=== PATIENT | male | born 1955 | race Caucasian/White ===

== ENCOUNTER 2017-03-17 13:33 | Outpatient (CLI) | payer MEDICARE | END 2017-03-17 13:34 | disposition home or self-care (01) | LOC: SC 13:33 | PROVIDERS: ATTEND Internal Medicine Pulmonary Disease | DX: G47.33 Obstructive sleep apnea (adult) (pediatric) (principal); F03.90 Unspecified dementia, unspecified severity, without behavioral disturbance, psychotic disturbance, mood disturbance, and anxiety; G43.009 Migraine without aura, not intractable, without status migrainosus; T88.7XXA Unspecified adverse effect of drug or medicament, initial encounter | CPT/HCPCS: 36415; 80053; 85025; 99203; G0463; 99212 ==

== ENCOUNTER 2017-03-17 14:29 | Outpatient (CLI) | payer MEDICARE ==
[2017-03-17 19:19] LABS: BASOPHILS % (AUTO) 0.7 %; EOSINOPHILS # (AUTO) 0.1 10^3/uL (0.0-0.7); EOSINOPHILS % (AUTO) 2.2 %; HCT - HEMATOCRIT 42.9 % (42.0-52.0); HGB - HEMOGLOBIN 14.1 g/dL (14.0-18.0); LYMPHOCYTES # (AUTO) 1.8 10^3/uL (1.5-3.5); LYMPHOCYTES % (AUTO) 28.9 %; MEAN CORPUSCULAR HEMOGLOBIN 29.8 pg (27.0-31.0); MEAN CORPUSCULAR HGB CONC 32.8 g/dL (32.0-36.0); MEAN CORPUSCULAR VOLUME 90.9 fL (80.0-94.0); MEAN PLATELET VOLUME 8.6 fL (7.4-11.4); MONOCYTES # (AUTO) 0.6 10^3/uL (0.0-1.0); MONOCYTES % (AUTO) 10.1 %; NEUTROPHILS # (AUTO) 3.7 10^3/uL (1.5-6.6); NEUTROPHILS % (AUTO) 58.1 %; RED BLOOD COUNT 4.72 10^6/uL (4.70-6.10); RED CELL DISTRIBUTION WIDTH 14.6 % (12.0-15.0); UNCORRECTED WHITE BLOOD COUNT 6.3 x10^3/uL; WHITE BLOOD COUNT 6.3 x10^3/uL (4.8-10.8)
[2017-03-17 19:31] LABS: ALBUMIN/GLOBULIN RATIO 1.2 (1.0-2.2); BILIRUBIN,TOTAL 0.3 mg/dL (0.2-1.0); CALCIUM 9.1 mg/dL (8.5-10.3); CREATININE 1.2 mg/dL (0.6-1.2); POTASSIUM 4.6 mmol/L (3.5-5.0); TOTAL PROTEIN 7.3 g/dL (6.7-8.2)
== END 2017-03-17 14:30 | disposition home or self-care (01) ==
LOC: LAB.N 14:29
PROVIDERS: ATTEND Psychiatry & Neurology Neurology
DX: F03.90 Unspecified dementia, unspecified severity, without behavioral disturbance, psychotic disturbance, mood disturbance, and anxiety (principal); G43.009 Migraine without aura, not intractable, without status migrainosus; G47.33 Obstructive sleep apnea (adult) (pediatric); T88.7XXA Unspecified adverse effect of drug or medicament, initial encounter
CPT/HCPCS: 36415; 80053; 85025

== ENCOUNTER 2017-05-13 19:23 | Outpatient (CLI) | payer MEDICARE | END 2017-05-13 19:24 | disposition home or self-care (01) | LOC: SC 19:23 | PROVIDERS: ATTEND Internal Medicine Pulmonary Disease | DX: G47.33 Obstructive sleep apnea (adult) (pediatric) (principal); G47.61 Periodic limb movement disorder | CPT/HCPCS: 95810 ==

== ENCOUNTER 2017-06-30 13:51 | Outpatient (CLI) | payer MEDICARE | END 2017-06-30 13:52 | disposition home or self-care (01) | LOC: SC 13:51 | PROVIDERS: ATTEND Nurse Practitioner Family | DX: G47.33 Obstructive sleep apnea (adult) (pediatric) (principal) | CPT/HCPCS: 99214; G0463; 99212 ==

== ENCOUNTER 2017-08-04 15:03 | Outpatient (CLI) | payer MEDICARE | END 2017-08-04 15:04 | disposition home or self-care (01) | LOC: SC 15:03 | PROVIDERS: ATTEND Nurse Practitioner Family | DX: G47.33 Obstructive sleep apnea (adult) (pediatric) (principal) | CPT/HCPCS: 99214; G0463; 99212 ==

== ENCOUNTER 2018-03-24 15:48 | Outpatient (CLI) | payer MEDICARE | END 2018-03-24 15:49 | disposition home or self-care (01) | LOC: SC 15:48 | PROVIDERS: ATTEND Nurse Practitioner Family | DX: G47.33 Obstructive sleep apnea (adult) (pediatric) (principal) | CPT/HCPCS: 99213; G0463; 99212 ==

== ENCOUNTER 2020-12-18 17:39 | Outpatient (CLI) | payer MEDICARE ==
--- NOTE | 2020-12-19 10:54 | XRAY Report ---
PROCEDURE: Lumbar Spine 2 View INDICATIONS: SCIATICA, R SIDE TECHNIQUE: 3 views of the lumbar spine were acquired. COMPARISON: None. FINDINGS: Bones: 5 [id number] vertebrae are present. There is there is trace retrolisthesis of L2 on L3, L5 on S1. Severe disc and foraminal narrowing are noted L5-S1. Minimal scattered osteophytes are pre sent most notable at L5. No vertebral body compression fractures. No suspicious bony lesions. Soft tissues: Overlying bowel gas pattern is normal. No suspicious soft tissue calcifications. IMPRESSION: 1. Degenerative changes most notable at L5-S1. If there is concern for additional evaluation of nerve impingement/compression at L5-S1, MRI lumbar spine without contrast is recommended. Reviewed by: Lizzette Genao MD on 12/19/2020 10:53 AM PDT Approved by: Lizeztte Genao MD on 12/19/2020 10:53 AM PDT Station ID: [id number]
== END 2020-12-18 17:40 | disposition home or self-care (01) ==
LOC: DI.N 17:39
PROVIDERS: ATTEND Family Medicine
DX: M47.27 Other spondylosis with radiculopathy, lumbosacral region (principal); M54.31 Sciatica, right side

== ENCOUNTER 2022-02-08 16:08 | Emergency (ER) | payer MEDICARE ==
[2022-02-08 16:20] VITALS: BP 169/96
--- OUTSIDE RECORDS SUMMARY | 2022-02-08 16:31 | EXTERNAL MEDICAL SUMMARY RPT | Continuity of Care Document ---
:1955 Author Organization [facility] Address [address] [place] [address] Phone Care Team Providers Name Role Phone Unavailable Unavailable Unavailable Jax Rec[employer] Of [employer] Enp Unavailable Unavailable Allergies No information. Encounters No information. Functional Status No information. Immunizations No information. Medications date description facility +0000 levothyroxine All [id number]+0000 levothyroxine All [id number]+0000 fluvoxamine All [id number]+0000 levothyroxine All [id number]+0000 donepezil All [id number]+0000 memantine All [id number]+0000 fluvoxamine All [id number]+0000 fluvoxamine All 38332150954290+0000 donepezil All [id number]+0000 memantine All [id number]+0000 donepezil All [id number]+0000 memantine All 45064699178630+0000 fluvoxamine All 44109961087251+0000 levothyroxine All 12906682845470+0000 memantine All 10656315549918+0000 donepezil All Problems No information. Procedures date description facility +0000 Visit Code Hold All Results/Labs No information. Social History date description facility +0000 Unknown if ever smoked All Vital Signs date measurement value units [id number]+0000 BP_diastolic BP_diastolic 112 mmHg [id number]+0000 BP_systolic BP_systolic 168 mmHg 11523573593945+0000 heart_rate heart_rate 72 /min 06039943865792+0000 respiration_rate respiration_rate 19 /min [id number]+0000 temperature_metric temperature_metric 36.17 C [id number]+0000 temperature_standard temperature_standard 9 7.1 F [id number]+0000 weight_metric weight_metric 69.49 kg [id number]+0000 weight_standard weight_standard 153.2 lb
[2022-02-08] MEDS ORDERED: DORZOLAMIDE/TIMOLOL OPHTH DROPS RIGHTEYE STA (16:34)
[2022-02-08] MEDS ORDERED: acetaZOLAMIDE 250 MG TABLET PO STA (16:38)
--- NOTE | 2022-02-08 16:38 | ED Physician Documentation ---
History of Present Illness - Stated complaint Stated Complaint: R EYE IRRITATION - Chief complaint Chief Complaint: General - History obtained from History obtained from: Patient, Family - Additonal information Additional information: 66-year-old gentleman with history of dementia presents referred from walk-in clinic for right eye pain. Starting last night he felt like something was in his eye and then he developed a headache and nausea today. He went to the walk- in clinic and they thought he was pale and not acting right so was sent here. Per the he is acting at his baseline but did agree that he was feeling pale. He has a headache and feels nauseous. He wears glasses usually, but they do not have them with him. He feels like his vision is affected by this but is unable to quantify by how much. Review of Systems Unable to obtain: Dementia PD PAST MEDICAL HISTORY - Past Medical History Endocrine/Autoimmune: HyPOthyroidism GI: GERD Psych: Depression - Past Surgical History Past Surgical History: Yes Neuro: Craniotomy - Present Medications Home Medications: Ambulatory Orders Medication Instructions Recorded Confirmed Fluvoxamine Maleate 100 mg PO TID 08/30/13 08/30/13 Levothyroxine [Synthroid] 50 mcg PO QDAC 08/30/13 08/30/13 Naproxen [Naprosyn] 250 mg PO BID 08/30/13 08/30/13 Omeprazole 20 mg PO 08/30/13 08/30/13 Sucralfate [Carafate] 1 gm PO ACHS #60 tablet 08/31/13 - Allergies Allergies/Adverse Reactions: Allergies Allergy/AdvReac Type Severity Reaction Status Date / Time fluoxetine HCl * AdvReac agitated Verified 02/08/22 16:20 [From [facility] [employer]] - Social History Does the pt smoke?: No Smoking Status: Never smoker Does the pt drink ETOH?: No Does the pt have substance abuse?: Yes - Immunizations Immunizations are current?: Yes PD ED PE NORMAL - Vitals Vital signs reviewed: Yes - General General: No acute distress, Well developed/nourished - HEENT HEENT: Other (The right eye has an injected conjunctiva, a midpoint nonreactive pupil with cloudy anterior chamber. Irineo-Pen giving me error messages twice but then measuring 30 twice. Right eye has a small pupil with Irineo-Pen pressure of 16. Visual acuity 20/70 OS, cannot read top line OD, this is uncorrected.) - Neck Neck: Supple, no meningeal sign, No bony TTP - Cardiac Cardiac: RRR, No murmur - Respiratory Respiratory: No respiratory distress, Clear bilaterally - Abdomen Abdomen: Normal bowel sounds, Soft, Non tender - Back Back: No CVA TTP, No spinal TTP - Derm Derm: Normal color, Warm and dry - Extremities Extremities: No edema, No calf tenderness / cord - Neuro Neuro: No motor deficit, No sensory deficit, Normal speech, Other (Some memory difficulties, leans on his for the history.) - Psych Psych: Normal mood, Normal affect Results - Vitals Vitals: Vital Signs - 24 hr 02/08/22 16:16 Temperature 36.1 C L Heart Rate 59 L Respiratory 16 Rate Blood Pressure 169/96 H O2 Saturation 100 Oxygen O2 Source Room air - Labs Labs: Laboratory Tests 02/08/22 02/08/22 16:45 16:45 WBC 10.0 RBC 4.63 L Hgb 13.5 L Hct 40.9 L MCV 88.3 MCH 29.2 MCHC 33.0 RDW 15.3 H Plt Count 373 MPV 9.2 Neut # (Auto) 8.0 H Lymph # (Auto) 1.4 L [place] # (Auto) 0.5 Eos # (Auto) 0.0 Baso # (Auto) 0.1 Absolute Nucleated RBC 0.00 Nucleated RBC % 0.0 Sodium 139 Potassium 4.0 Chloride 102 Carbon Dioxide 26 Anion Gap 11.0 BUN 10 Creatinine 1.0 Estimated GFR (MDRD) 75 L Glucose 139 H Calcium 9.8 PD MEDICAL DECISION MAKING - ED course ED course: 66-year-old gentleman presents with what looks like an acute angle-closure glaucoma. Irineo-Pen was only 30 here but otherwise his exam was typical. I contacted Jaret Saul, local process development engineer who agreed with us giving him a dose of p.o. Diamox and a topical dose of Cosopt here and he wanted to see the patient urgently in his clinic. I received word later that his actual intraocular pressure was 78 with corneal edema and a laser treatment was done. Departure - Departure Disposition: 01 Home, Self Care Clinical Impression: Glaucoma (increased eye pressure) Condition: Good Record reviewed to determine appropriate education?: Yes Comments: Go directly the office of Jaret Saul process development engineer in [place]. His office is located at [address] in [place]. It is on [address] [place]. He is in [place]. Discharge Date/Time: 02/08/22 16:58
[2022-02-08 16:51] LABS: BASOPHILS # (AUTO) 0.1 10^3/uL (0.0-0.1); BASOPHILS % (AUTO) 0.5 %; EOSINOPHILS % (AUTO) 0.2 %; HCT - HEMATOCRIT 40.9 % (42.0-52.0); HGB - HEMOGLOBIN 13.5 g/dL (14.0-18.0); LYMPHOCYTES # (AUTO) 1.4 10^3/uL (1.5-3.5); LYMPHOCYTES % (AUTO) 13.8 %; MEAN CORPUSCULAR HEMOGLOBIN 29.2 pg (27.0-31.0); MEAN CORPUSCULAR VOLUME 88.3 fL (80.0-94.0); MEAN PLATELET VOLUME 9.2 fL (7.4-11.4); MONOCYTES # (AUTO) 0.5 10^3/uL (0.0-1.0); MONOCYTES % (AUTO) 5.2 %; NEUTROPHILS % (AUTO) 79.9 %; PLT - PLATELET COUNT 373 10^3/uL (130-450); RED BLOOD COUNT 4.63 10^6/uL (4.70-6.10); RED CELL DISTRIBUTION WIDTH 15.3 % (12.0-15.0)
[2022-02-08 17:08] LABS: CALCIUM 9.8 mg/dL (8.5-10.3)
== END 2022-02-08 16:58 | disposition home or self-care (01) ==
LOC: ED 16:08
DX: H40.9 Unspecified glaucoma (principal)
CPT/HCPCS: 36415; 80048; 85025; 99283; A9270

== ENCOUNTER 2022-02-20 16:43 | Outpatient (CLI) | payer MEDICARE | END 2022-02-20 16:44 | disposition home or self-care (01) | LOC: LAB.N 16:43 | PROVIDERS: ATTEND Ophthalmology | DX: Z01.812 Encounter for preprocedural laboratory examination (principal); H25.9 Unspecified age-related cataract; Z20.822 Contact with and (suspected) exposure to COVID-19 ==

== ENCOUNTER 2022-02-21 08:51 | Day surgery (SDC) | payer MEDICARE ==
[~2022-02-21 08:51] MED LIST: ACETYLCHOLINE 20 MG/2 ML KIT IO ONE; BRIMONIDINE 0.2% OPHTH DROPS 5 ML ONE; BSS/LIDOCAINE/EPINEPHRINE 1 ML VIAL ONE; CYCLOPENTOLATE 1% OPHTH DROPS 2 ML ONE; EPINEPHrine 1 MG/ML AMP ONE; KETOROLAC 0.45% OPHTH DROPS ONE; PHENYLEPHRINE 2.5% OPHTH 2 ML DROPS ONE; PROPARACAINE 0.5% OPHTH DROPS 15 ML ONE; TRIAMCIN/MOXIFLOX OPHTHALMIC 0.6 ML VIAL IO ONE; TRYPAN BLUE 0.5 ML SYRINGE IO ONE; VANCOMYCIN OPHTH (TOPICAL) 10 MG/ML SYRINGE ONE
[2022-02-21] MEDS ORDERED: LACTATED RINGERS 1,000 ML IV ONE ×2 (09:46→12:08)
--- NOTE | 2022-02-21 10:10 | ANESTHESIA ---
Pre-Anesthesia VS, & Labs - Diagnosis R cataract - Procedure R PhacoIOL Vital Signs: Temp Pulse Resp BP Pulse Ox O2 Flow Rate 36.3 C L 52 L 15 148/90 H 100 0 02/21/22 09:47 02/21/22 09:47 02/21/22 09:47 02/21/22 09:47 02/21/22 09:47 02/21/22 09:47 Height: 5 ft 9 in Weight (kg): 68.6 kg Body Mass Index: 22.3 BMI Classification: Normal - NPO >8 hours Home Medications and Allergies Home Medications: Ambulatory Orders Aspirin [Aspirin EC] 81 mg PO DAILY 02/20/22 Divalproex [Kathia Lau] 250 mg PO BID 02/20/22 Donepezil HCl [Aricept] 20 mg PO QPM 02/20/22 Magnesium Oxide [Magnesium] 500 mg PO DAILY 02/20/22 Memantine [Namenda] 5 mg PO DAILY 02/20/22 Timolol [Betimol] 1 ml OP DAILY 02/20/22 acetaZOLAMIDE [Diamox] 250 mg PO QID 02/20/22 Fluvoxamine Maleate 100 mg PO TID 08/30/13 Levothyroxine [Synthroid] 75 mcg PO QDAC 08/30/13 Naproxen [Naprosyn] 250 mg PO BID 08/30/13 Omeprazole 20 mg PO DAILY 08/30/13 Aspirin [Aspirin EC] 81 mg PO DAILY 02/20/22 Divalproex [Kathia Lau] 250 mg PO BID 02/20/22 Donepezil HCl [Aricept] 20 mg PO QPM 02/20/22 Magnesium Oxide [Magnesium] 500 mg PO DAILY 02/20/22 Memantine [Namenda] 5 mg PO DAILY 02/20/22 Timolol [Betimol] 1 ml OP DAILY 02/20/22 acetaZOLAMIDE [Diamox] 250 mg PO QID 02/20/22 Allergies/Adverse Reactions: Allergies Allergy/AdvReac Type Severity Reaction Status Date / Time fluoxetine HCl * AdvReac agitated Verified 02/21/22 09:51 [From Prozac] Anes History & Medical History - Anesthetic History Anesthesia Complications: reports: No previous complications Family history of Anesthesia Complications: Denies Family history of Malignant Hyperthermia: Denies - Medical History Cardiovascular: reports: Hypertension, High cholesterol Pulmonary: reports: Sleep apnea Gastrointestinal: reports: GERD Urinary: reports: None Neuro: reports: Dementia Musculoskeletal: reports: Osteoarthritis Endocrine/Autoimmune: reports: HyPOthyroidism Skin: reports: None Smoking Status: Never smoker - Surgical History Neurologic: reports: Craniotomy Orthopedic: reports: Spine surgery Exam General: Alert, Cooperative Dental: Poor dentition, Other (may missing teeth, very poor dentition, pt denies any are loose) Mouth Openin Fingerbreadth Neck Mobility: Normal Mallampati classification: II Thyromental Distance: 4-6 cm Respiratory: Lungs clear Plan Anesthesia Type: General Consent for Procedure(s) Verified and Reviewed: Yes Code Status: Attempt Resuscitation ASA classification: 3-Severe systemic disease Is this case an emergency?: No
[2022-02-21] MEDS ORDERED: MORPHINE 2 MG/ML CARPUJECT IVP PRN (10:11)
[2022-02-21] MEDS ORDERED: ePHEDrine 50 MG/ML VIAL IVP PRN (10:11)
[2022-02-21] MEDS ORDERED: fentaNYL 100 MCG/2 ML VIAL IVP PRN (10:11)
[2022-02-21] MEDS ORDERED: NALOXONE 0.4 MG/ML VIAL IVP PRN (10:11)
[2022-02-21] MEDS ORDERED: ATROPINE ABBOJECT 1 MG/10 ML SYRINGE IVP PRN (10:11)
[2022-02-21] MEDS ORDERED: ONDANSETRON 4 MG/2 ML VIAL IVP PRN (10:11)
[2022-02-21] MEDS ORDERED: HYDROmorphone 0.5 MG/0.5 ML SYRINGE IVP PRN (10:11)
[2022-02-21] MEDS ORDERED: LACTATED RINGERS 1,000 ML IV SCH (11:00)
[2022-02-21] MEDS ORDERED: BRIMONIDINE 0.2% OPHTH DROPS 5 ML OPTH ONE (11:39)
[2022-02-21] MEDS ORDERED: TIMOLOL 0.5% OPHTH DROPS OPTH ONE (11:40)
[2022-02-21] MEDS ORDERED: EPINEPHrine 1 MG/ML AMP IR ONE (11:40)
[2022-02-21] MEDS ORDERED: VANCOMYCIN OPHTH (TOPICAL) 10 MG/ML SYRINGE TOP ONE (11:41)
[2022-02-21] MEDS ORDERED: TRIAMCIN/MOXIFLOX OPHTHALMIC 0.6 ML VIAL IO ONE (11:41)
[2022-02-21] MEDS ORDERED: BSS/LIDOCAINE/EPINEPHRINE 1 ML SYRINGE IO ONE (11:41)
[2022-02-21] MEDS ORDERED: PROPARACAINE 0.5% OPHTH DROPS 15 ML EACHEYE ONE (11:41)
[2022-02-21] MEDS ORDERED: TRYPAN BLUE 0.5 ML SYRINGE IO ONE (11:46)
[2022-02-21] MEDS ORDERED: LIDOCAINE-MPF 2% 5 ML VIAL ONE (11:54)
[2022-02-21] MEDS ORDERED: PROPOFOL 200 MG/20 ML VIAL IVP ONE (11:54)
[2022-02-21] MEDS ORDERED: GLYCOPYRROLATE 1 MG/5 ML VIAL ONE (11:54)
--- NOTE | 2022-02-21 12:25 | ANESTHESIA POST OP EVALUATION ---
Anesthesia Post Eval - Post Anesthesia Eval Vitals: Last Vital Signs Temp 36.6 C 02/21/22 12:20 Pulse 92 02/21/22 12:20 Resp 16 02/21/22 12:20 BP 92/70 02/21/22 12:20 Pulse Ox 100 02/21/22 12:20 O2 Flow Rate 0 02/21/22 09:47 CV Function Including HR & BP: Stable Pain Control: Satisfactory Nausea & Vomiting: Negative Mental Status: Baseline Respiratory Status: Airway Patent Hydration Status: Satisfactory Anesthesia Complications: None
--- NOTE | 2022-02-21 12:30 | OPERATIVE REPORT ---
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 This was the first cataract surgery. Postop Dx: Same Procedure: Phacoemulsification with posterior chamber intraocular lens implant right eye Surgeon: Dr. Jaret Saul Anesthesia: General anesthesia with LMA Complications: None Operative Indications: This is a 67-year-old M with sudden onseet of intense pain in the right eye due to acute angle closure glaucoma and mature nuclear sclerotic/cortical cataract. Best corrected visual acuity was hand motion with glare to light perception vision in the right eye. Indications for surgery were: - Angle-closure glaucoma (primary indication) - Overall decrease in vision - Difficulty seeing words on a computer screen - Difficulty seeing words, closed captions, or game scores on TV - Difficulty driving in low light or at night - Difficulty driving at night because of headlights from other vehicles - Difficulty with glare or bright lights in any situation The patient was consented at length concerning the HIGH risks and benefits of cataract surgery (to relieve angle closure, to allow assessment of the optic nerve and retina, and hopefully to restore usable vision) after which the patient expressed a desire to proceed with surgery. Operative Procedure: The patient was taken into OR#3 and placed under general anesthesia using an LMA. A surgical time-out was conducted confirming correct patient, correct procedure, and correct surgical site. The patient was then prepped and draped in the usual sterile fashion. The eye was gingerly entered at the 9 oclock position a 1mm keratome being careful not to cut the iris (which was nearly flat against the cornea). Intracameral Shugarcaine was injected into the anterior chamber followed by a dispersive viscoelastic. The chamber deepened. Synechiolysis was performed using a cyclodialysis spatula (about 60% of the iris was syneched to the anterior lens capsule). An air bubble was injected under the viscoelastic followed by Trypan Blue to stain the capsule. A Malyugin ring was injected into the anterior chamber and engaged with the pupillary margin at four points to expand the pupil. Healon 5 was injected in to the anterior chamber in order to indent the anterior capsule. A continuous-tear curvilinear capsulorhexis was attempted but started to run out temporally. The rhexis was restarted from a couple of can subgrade tester incisions inferiorly and brought around counter clockwise to meet the first attempt temporally. It was an irregular rhexis so all maniupations that could put stress on the capsule were performed as gingerly as possible. The nucleus was hydrodissected and phacoemulsified. The cortex was evacuated using automated infusion and aspiration. A cohesive viscoelastic was injected into the capsular bag and a 22.0 diopter intraocular lens was inserted into the bag. The Malyugin ring was disengaged from the pupillary margin and removed from the anterior chamber. Infusion and aspiration were used to evacuate the viscoelastic materials from the eye. The wounds were hydrated and the eye inflated to physiologic pressure using balanced salt solution. Approximately 0.25ml of a mixture of triamcinolone and moxifloxacin was injected trans-sclerally into the vitreous in the inferotemporal quadrant using a 30 gauge cannula. An additional 0.55ml of a mixture of triamcinolone and moxifloxacin was injected subconjunctivally in the superior quadrant for infection and inflammation prophylaxis. Wound integrity was checked with Weck-Jacqueline sponges. The patient was extubated, taken from the operating room in good condition, and his was given post-op instructions.
[2022-02-21 12:43] VITALS: BP 144/103
== END 2022-02-21 08:52 | disposition home or self-care (01) ==
LOC: SDS 08:51
PROVIDERS: ATTEND Ophthalmology
DX: H25.89 Other age-related cataract (principal); H40.211 Acute angle-closure glaucoma, right eye; I10 Essential (primary) hypertension; G47.30 Sleep apnea, unspecified
CPT/HCPCS: 66982; A9270; J3490; J7120

== ENCOUNTER 2022-03-27 16:43 | Outpatient (CLI) | payer MEDICARE | END 2022-03-27 16:44 | disposition home or self-care (01) | LOC: LAB.N 16:43 | PROVIDERS: ATTEND Ophthalmology | DX: Z01.812 Encounter for preprocedural laboratory examination (principal); H25.812 Combined forms of age-related cataract, left eye; Z20.822 Contact with and (suspected) exposure to COVID-19 ==

== ENCOUNTER 2022-03-28 07:17 | Day surgery (SDC) | payer MEDICARE ==
[~2022-03-28 07:17] MED LIST changes: -ACETYLCHOLINE 20 MG/2 ML KIT IO ONE; +TIMOLOL 0.5% OPHTH DROPS ONE; -TRYPAN BLUE 0.5 ML SYRINGE IO ONE
[2022-03-28] MEDS ORDERED: LACTATED RINGERS 1,000 ML IV ONE (07:31)
[2022-03-28] MEDS ORDERED: TIMOLOL 0.5% OPHTH DROPS ONE (07:32)
--- NOTE | 2022-03-28 07:48 | ANESTHESIA ---
Pre-Anesthesia VS, & Labs - Diagnosis L senile combined cataract - Procedure L extraction cataract w/IOL Vital Signs: Temp Pulse Resp BP Pulse Ox O2 Flow Rate 36.4 C L 63 16 164/94 H 98 0 03/28/22 07:31 03/28/22 07:31 03/28/22 07:31 03/28/22 07:31 03/28/22 07:31 03/28/22 07:31 Height: 5 ft Weight (kg): 69.9 kg Body Mass Index: 30.1 BMI Classification: Obese - NPO >8 hours - Lab Results Lab results reviewed: Yes Home Medications and Allergies Fluvoxamine Maleate 100 mg PO TID 08/30/13 Levothyroxine [Synthroid] 75 mcg PO QDAC 08/30/13 Naproxen [Naprosyn] 250 mg PO BID 08/30/13 Omeprazole 20 mg PO DAILY 08/30/13 Aspirin [Aspirin EC] 81 mg PO DAILY 02/20/[address] [Depakote Dr] 250 mg PO BID 02/20/22 Donepezil HCl [Aricept] 20 mg PO QPM 02/20/22 Magnesium Oxide [Magnesium] 500 mg PO DAILY 02/20/22 Memantine [Namenda] 5 mg PO DAILY 02/20/22 Timolol [Betimol] 1 ml OP DAILY 02/20/22 acetaZOLAMIDE [Diamox] 250 mg PO QID 02/20/22 Allergies/Adverse Reactions: Allergies Allergy/AdvReac Type Severity Reaction Status Date / Time fluoxetine HCl * AdvReac agitated Verified 03/28/22 07:41 [From [facility]] Anes History & Medical History - Anesthetic History Anesthesia Complications: reports: No previous complications Family history of Anesthesia Complications: Denies Family history of Malignant Hyperthermia: Denies - Medical History Cardiovascular: reports: Hypertension, High cholesterol Pulmonary: reports: Sleep apnea Gastrointestinal: reports: GERD Urinary: reports: None Neuro: reports: Dementia Musculoskeletal: reports: Osteoarthritis Endocrine/Autoimmune: reports: HyPOthyroidism Skin: reports: None Smoking Status: Never smoker - Surgical History Neurologic: reports: Craniotomy Orthopedic: reports: Spine surgery Exam General: Alert, Oriented x3, Cooperative Dental: WNL Mouth Openin Fingerbreadth Neck Mobility: Normal Mallampati classification: II Thyromental Distance: 4-6 cm Respiratory: Lungs clear, Normal breath sounds, No respiratory distress Cardiovascular: Regular rate Neurological: Normal speech Mental/Cognitive Status: Alert/Oriented X3, Normal for patient Cognitive Status: Within normal limits Plan Anesthesia Type: MAC Consent for Procedure(s) Verified and Reviewed: Yes Code Status: Attempt Resuscitation ASA classification: 3-Severe systemic disease Is this case an emergency?: No
[2022-03-28] MEDS ORDERED: MIDAZOLAM 2 MG/2 ML VIAL ONE (08:29)
[2022-03-28] MEDS ORDERED: fentaNYL 100 MCG/2 ML VIAL ONE (08:29)
[2022-03-28] MEDS ORDERED: TIMOLOL 0.5% OPHTH DROPS OPTH ONE (09:02)
[2022-03-28] MEDS ORDERED: TRIAMCIN/MOXIFLOX OPHTHALMIC 0.6 ML VIAL IO ONE (09:02)
[2022-03-28] MEDS ORDERED: EPINEPHrine 1 MG/ML AMP IR ONE (09:02)
[2022-03-28] MEDS ORDERED: BRIMONIDINE 0.2% OPHTH DROPS 5 ML OPTH ONE (09:02)
[2022-03-28] MEDS ORDERED: BSS/LIDOCAINE/EPINEPHRINE 1 ML SYRINGE IO ONE (09:02)
[2022-03-28] MEDS ORDERED: PROPARACAINE 0.5% OPHTH DROPS 15 ML LEFTEYE ONE (09:03)
[2022-03-28] MEDS ORDERED: VANCOMYCIN OPHTH (TOPICAL) 10 MG/ML SYRINGE TOP ONE (09:04)
[2022-03-28] MEDS ORDERED: LACTATED RINGERS 900 ML IV ONE ×3 (09:13)
--- NOTE | 2022-03-28 09:18 | ANESTHESIA POST OP EVALUATION ---
Anesthesia Post Eval - Post Anesthesia Eval Vitals: Last Vital Signs Temp 36.4 C L 03/28/22 07:31 Pulse 63 03/28/22 07:31 Resp 16 03/28/22 07:31 BP 164/94 H 03/28/22 07:31 Pulse Ox 98 03/28/22 07:31 O2 Flow Rate 0 03/28/22 07:31 CV Function Including HR & BP: Stable Pain Control: Satisfactory Nausea & Vomiting: Negative Mental Status: Baseline Respiratory Status: Airway Patent Hydration Status: Satisfactory Anesthesia Complications: None
[2022-03-28] MEDS ORDERED: FLUMAZENIL 0.1 MG/1 ML 5 ML MDV IVP ONE (09:38)
[2022-03-28] MEDS ORDERED: NALOXONE 0.4 MG/ML VIAL ONE (09:38)
--- NOTE | 2022-03-28 09:38 | ANESTHESIA POST OP EVALUATION ---
Anesthesia Post Eval - Post Anesthesia Eval Vitals: Last Vital Signs Temp 36.2 C L 03/28/22 09:31 Pulse 56 L 03/28/22 09:31 Resp 15 03/28/22 09:31 BP 126/71 03/28/22 09:31 Pulse Ox 100 03/28/22 09:31 O2 Flow Rate 0 03/28/22 07:31 CV Function Including HR & BP: Stable Pain Control: Satisfactory Nausea & Vomiting: Negative Mental Status: Baseline Respiratory Status: Airway Patent Hydration Status: Satisfactory Anesthesia Complications: None (Called to PACU for decreased LOC, profound bradycardia (30s). Pt already supine apun arrival to room. Responsive to sternal rub but HR not increasing. RR@6-8. Narcan 0.2mg and romazicon 0.2 mg IV. Pt responsive to voice after 30 seconds. HR up to 55, better color, responding appropriately.)
[2022-03-28] MEDS ORDERED: GLYCOPYRROLATE 1 MG/5 ML VIAL ONE (09:40)
--- NOTE | 2022-03-28 10:08 | OPERATIVE REPORT ---
Operative Report - Procedure Note Complications: Date of Surgery: 03/28/22 Preop Dx: Visually significant cataract left eye. Cataract surgery was performed in the right eye on [id number]. Postop Dx: Same Procedure: Phacoemulsification with posterior chamber intraocular lens implant left eye Surgeon: Dr. Jaret Saul Anesthesia: Monitored anesthesia care Complications: None Operative Indications: This is a 67-year-old M with progressive vision loss in the left eye due to 2+ nuclear sclerotic and 3+ cortical cataract. Best corrected visual acuity was 20/40 with glare to 20/50 vision in the left eye. Indications for surgery were: - Difficulty reading - Difficulty seeing words, closed captions, or game scores on TV - Difficulty seeing street signs - Difficulty driving in low light or at night - Difficulty driving at night because of headlights from other vehicles - Difficulty with glare or bright lights in any situation The patient was consented at length concerning the risks and benefits of cataract surgery after which the patient expressed a desire to proceed with surgery. Operative Procedure: The patient was taken into OR#3 and placed under monitored anesthesia care. A surgical time-out was conducted confirming correct patient, correct procedure, and correct surgical site. The patient was given topical anesthesia and then prepped and draped in the usual sterile fashion. The eye was entered at the 6 and 3 oclock positions. Intracameral Shugarcaine was injected into the anterior chamber followed by a dispersive viscoelastic. A continuous-tear curvilinear capsulorhexis was performed. The nucleus was hydrodissected and phacoemulsified. The cortex was evacuated using automated infusion and aspiration. A cohesive viscoelastic was injected into the capsular bag and a 20.0 diopter intraocular lens was inserted into the bag. Infusion and aspiration were used to evacuate the viscoelastic materials from the eye. The wounds were hydrated and the eye inflated to physiologic pressure using balanced salt solution. Approximately 0.25ml of a mixture of triamcinolone and moxifloxacin was injected trans-sclerally into the vitreous in the inf erotemporal quadrant using a 30 gauge cannula. An additional 0.55ml of a mixture of triamcinolone and moxifloxacin was injected subconjunctivally in the superior quadrant for infection and inflammation prophylaxis. Wound integrity was checked with Weck-Jacqueline sponges. The patient was taken from the operating room in good condition and given post-op instructions.
[2022-03-28 10:59] VITALS: BP 133/75
== END 2022-03-28 07:18 | disposition home or self-care (01) ==
LOC: SDS 07:17
PROVIDERS: ATTEND Ophthalmology
DX: H25.812 Combined forms of age-related cataract, left eye (principal); G47.30 Sleep apnea, unspecified; Z98.41 Cataract extraction status, right eye
CPT/HCPCS: 66984; A9270; J3490; J7120

== ENCOUNTER 2022-12-19 04:34 | Outpatient (CLI) | payer MEDICARE | END 2022-12-19 23:59 | disposition EMS.NT | LOC: EMS 04:34 | DX: Z03.89 Encounter for observation for other suspected diseases and conditions ruled out (principal) ==

== ENCOUNTER 2023-03-31 02:12 | Outpatient (CLI) | payer MEDICARE | END 2023-03-31 02:13 | disposition EMS.NT | LOC: EMS 02:12 | DX: Z03.89 Encounter for observation for other suspected diseases and conditions ruled out (principal) ==